=== PATIENT | female | born 1970 | race Caucasian/White ===

== ENCOUNTER 2018-11-08 20:16 | Observation (INO) | payer BC ==
[2018-11-08 22:34] LABS: Urine Blood NEGATIVE (NEG); Urine Glucose TRACE (NEG); Urine Protein NEGATIVE (NEG); Urine Specific Gravity 1.025 (1.005-1.030); Urine pH 5.5 (5.0-7.0)
[2018-11-08 22:54] LABS: Absolute Lymphocytes (CBC) 5.8 K/uL (0.7-4.9); Absolute Monocytes 1.4 K/uL (0.1-1.3); Absolute Neutrophil 10.4 K/uL (1.8-8.0); Basophils % 0.4 % (0-1.3); Eosinophils % 1.4 % (0-4.4); Hematocrit 37.5 % (36.0-45.0); Lymphocytes % 32.3 % (15.3-44.8); MPV 8.4 fL (7.6-11.3); Monocytes % 7.8 % (3.3-12.3); RBC Red Blood Cell Count 4.33 M/uL (3.86-4.86)
[2018-11-08 23:19] LABS: Potassium 3.7 mmol/L (3.5-5.1)
[2018-11-08 23:36] LABS: Urine Bacteria <20 /HPF (<20); Urine Culture Reflex Order NOT NEEDED; Urine RBC NONE SEEN /HPF (NONE SEEN)
[2018-11-08] MEDS ORDERED: NA CHLORIDE 0.9% 1,000 ML ONE (23:58)
[2018-11-08] MEDS ORDERED: KETOROLAC 30 MG/ML INJ ONE (23:58)
--- NOTE | 2018-11-09 00:48 | ER ---
Nurse's Notes [facility] Name: Gemma Liao Age: 48 yrs Sex: Female : 1970 Arrival Date: 11/08/2018 Time: 20:24 Bed 26 Private MD: Diagnosis: Acute appendicitis Presentation: 11/08 20:30 Presenting complaint: Patient states: "for 2 days now my abdominal muscles have been jd3 spamming and today they they just feel knotted and hurt. it hurts to stand or do anything.". Transition of care: patient was not received from another setting of care. Onset of symptoms was November 06, 2018. Risk Assessment: Do you want to hurt yourself or someone else? Patient reports no desire to harm self or others. Initial Sepsis Screen: Does the patient meet any 2 criteria? No. Patient's initial sepsis screen is negative. Does the patient have a suspected source of infection? No. Patient's initial sepsis screen is negative. Care prior to arrival: None. 20:30 Method Of Arrival: Ambulatory jd3 20:30 Acuity: NATHEN 3 jd3 PHYS ASSISTANT: 22:36 LMP N/A - Hysterectomy mg2 Historical: - Allergies: 20:35 No Known Allergies; jd3 - Home Meds: 20:35 embral [Active]; Cymbalta oral oral [Active]; jd3 - PMHx: 20:35 Arthritis; jd3 - PSHx: 20:35 right leg and ankle; Hysterectomy; jd3 - Immunization history:: Adult Immunizations up to date. - Social history:: Smoking status: Patient uses tobacco products, smokes one-half pack cigarettes per day. - Ebola Screening: : Patient negative for fever greater than or equal to 101.5 degrees Fahrenheit, and additional compatible Ebola Virus Disease symptoms. Screenin:36 Abuse screen: Denies threats or abuse. Denies injuries from another. Nutritional mg2 screening: No deficits noted. Tuberculosis screening: No symptoms or risk factors identified. Never had TB. Fall Risk IV access (20 points). Assessment: 22:34 General: Appears in no apparent distress. uncomfortable, Behavior is calm, cooperative. mg2 Pain: Complains of pain in left lower quadrant and right lower quadrant Pain does not radiate. Pain currently is 7 out of 10 on a pain scale. Quality of pain is described as aching, Pain began gradually, Is intermittent. Neuro: Level of Consciousness is awake, alert, obeys commands, Oriented to person, place, time, situation. Cardiovascular: Capillary refill < 3 seconds Patient's skin is warm and dry. Respiratory: Airway is patent Respiratory effort is even, unlabored, Respiratory pattern is regular, symmetrical. GI: Bowel sounds present X 4 quads. Abd is soft and non tender X 4 quads. Reports lower abdominal pain. : No signs and/or symptoms were reported regarding the genitourinary system. EENT: No signs and/or symptoms were reported regarding the EENT system. Derm: Skin is intact, is healthy with good turgor, Skin is pink, warm \\T\\ dry. normal. Musculoskeletal: Circulation, motion, and sensation intact. Capillary refill < 3 seconds. Vital Signs: 20:35 BP 126 / 80; Pulse 82; Resp 17 S; Temp 98.3(TE); Pulse Ox 97% on R/A; Weight 58.97 kg jd3 (R); Height 4 ft. 11 in. (149.86 cm) (R); Pain 8/10; 11/09 00:16 BP 119 / 81; Pulse 73; Resp 18; Pulse Ox 99% on R/A; mg2 01:10 BP 152 / 84; Pulse 87; Resp 18; Pulse Ox 100% on R/A; tl3 02 20:35 Body Mass Index 26.26 (58.97 kg, 149.86 cm) jd3 ED Course: 11/08 20:24 Patient arrived in ED. am2 20:31 Triage completed. jd3 20:35 Arm band placed on. jd3 20:47 Lizz Escobedo FNP-C is PHCP. kb 20:48 Godfrey Hartley MD is Attending Physician. kb 22:10 Urine collected: clean catch specimen, clear, arely colored. jp3 22:27 Delfin Ware, NALDO is Primary Nurse. mg2 22:36 Patient has correct armband on for positive identification. Pulse ox on. NIBP on. Door mg2 closed. Warm blanket given. 22:36 No provider procedures requiring assistance completed. Inserted saline lock: 20 gauge mg2 in right antecubital area, using aseptic technique. Blood collected. 11/09 00:13 CT completed. Patient tolerated procedure well. Patient moved to CT via wheelchair. Patient moved back from CT. 00:22 CT Abd/Pelvis - W/Contrast In Process Unspecified. EDMS 00:47 Jose Sanders MD is Hospitalizing Provider. kb 01:13 Patient admitted, IV remains in place. mg2 Administered Medications: 11/08 23:51 Drug: NS 0.9% 1000 ml Route: IV; Rate: 1000 ml; Site: right antecubital; mg2 11/09 00:05 Follow up: IV Status: Completed infusion; IV Intake: 1000ml tl3 11/08 23:51 Drug: TORadol 30 mg Route: IVP; Site: right antecubital; mg2 11/09 01:09 Follow up: Response: No adverse reaction tl3 01:05 Drug: morphine 4 mg Route: IVP; Site: right antecubital; mg2 01:38 Follow up: Response: No adverse reaction; Marked relief of symptoms mg2 01:05 Drug: Zofran 4 mg Route: IVP; Site: right antecubital; mg2 01:38 Follow up: Response: No adverse reaction; Marked relief of symptoms mg2 01:38 Drug: InvANZ 1 grams Route: IVPB; Infused Over: 30 mins; Site: right antecubital; mg2 01:38 Follow up: Response: No adverse reaction; IV Status: Infusion continued upon admission mg2 Intake: 00:05 IV: 1000ml; Total: 1000ml. tl3 Outcome: 00:47 Decision to Hospitalize by Provider. kb 01:43 Admitted to Med/surg accompanied by tech, via wheelchair, room 225, with chart, Report mg2 called to NALDO Wong 01:43 Condition: stable 01:43 Instructed on the need for admit, Demonstrated understanding of instructions. 01:50 Patient left the ED. mg2 Signatures: Dispatcher [employer] EDMS Lizz Escobedo, PUBLIC SPEAKING INSTRUCTOR-C PUBLIC SPEAKING INSTRUCTOR-Paco Martinez Danisha Haq am2 Abundio Ngo RN RN jCait Escobar RN RN tl3 Delfin Ware RN RN mg2 Baldev Bates jp3
--- NOTE | 2018-11-09 00:48 | EDPHYS ---
Physician Documentation [facility] Name: Gemma Liao Age: 48 yrs Sex: Female : 1970 Arrival Date: 11/08/2018 Time: 20:24 Bed 26 Private MD: ED Physician Godfrey Hartley HPI: 11/08 22:22 This 48 yrs old Female presents to ER via Ambulatory with complaints of kb muscle spasms, Abdominal Pain. 22:22 The patient presents with abdominal pain in the lower abdomen. Onset: The kb symptoms/episode began/occurred yesterday. The symptoms do not radiate. Associated signs and symptoms: Pertinent positives: nausea and vomiting. The symptoms are described as constant. Modifying factors: The symptoms are alleviated by nothing, the symptoms are aggravated by movement, pressure. Severity of pain: At its worst the pain was moderate in the emergency department the pain is unchanged. The patient has not experienced similar symptoms in the past. The patient has not recently seen a physician. TUBE MAN: 22:36 LMP N/A - Hysterectomy mg2 Historical: - Allergies: 20:35 No Known Allergies; jd3 - Home Meds: 20:35 embral [Active]; Cymbalta oral oral [Active]; jd3 - PMHx: 20:35 Arthritis; jd3 - PSHx: 20:35 right leg and ankle; Hysterectomy; jd3 - Immunization history:: Adult Immunizations up to date. - Social history:: Smoking status: Patient uses tobacco products, smokes one-half pack cigarettes per day. - Ebola Screening: : Patient negative for fever greater than or equal to 101.5 degrees Fahrenheit, and additional compatible Ebola Virus Disease symptoms. ROS: 22:21 Constitutional: Negative for fever, chills, and weight loss, ENT: Negative for injury, kb pain, and discharge, Neck: Negative for injury, pain, and swelling, Cardiovascular: Negative for chest pain, palpitations, and edema, Respiratory: Negative for shortness of breath, cough, wheezing, and pleuritic chest pain, MS/Extremity: Negative for injury and deformity, Skin: Negative for injury, rash, and discoloration, Neuro: Negative for headache, weakness, numbness, tingling, and seizure. 22:21 Abdomen/GI: Positive for abdominal pain, nausea and vomiting, Negative for diarrhea, constipation, abdominal cramps, abdominal distension, anorexia. 22:21 Back: Positive for flank pain. Exam: 22:21 Constitutional: This is a well developed, well nourished patient who is awake, alert, kb and in no acute distress. Head/Face: Normocephalic, atraumatic. ENT: Nares patent. No nasal discharge, no septal abnormalities noted. Tympanic membranes are normal and external auditory canals are clear. Oropharynx with no redness, swelling, or masses, exudates, or evidence of obstruction, uvula midline. Mucous membranes moist. Neck: Trachea midline, no thyromegaly or masses palpated, and no cervical lymphadenopathy. Supple, full range of motion without nuchal rigidity, or vertebral point tenderness. No Meningismus. Chest/axilla: Normal chest wall appearance and motion. Nontender with no deformity. No lesions are appreciated. Cardiovascular: Regular rate and rhythm with a normal S1 and S2. No gallops, murmurs, or rubs. Normal PMI, no JVD. No pulse deficits. Respiratory: Lungs have equal breath sounds bilaterally, clear to auscultation and percussion. No rales, rhonchi or wheezes noted. No increased work of breathing, no retractions or nasal flaring. Skin: Warm, dry with normal turgor. Normal color with no rashes, no lesions, and no evidence of cellulitis. MS/ Extremity: Pulses equal, no cyanosis. Neurovascular intact. Full, normal range of motion. Neuro: Awake and alert, GCS 15, oriented to person, place, time, and situation. Cranial nerves II-XII grossly intact. Motor strength 5/5 in all extremities. Sensory grossly intact. Cerebellar exam normal. Normal gait. 22:21 Abdomen/GI: Inspection: abdomen appears normal, Bowel sounds: normal, in all quadrants, Palpation: soft, in all quadrants, moderate abdominal tenderness, in the right lower quadrant and left lower quadrant. Vital Signs: 20:35 BP 126 / 80; Pulse 82; Resp 17 S; Temp 98.3(TE); Pulse Ox 97% on R/A; Weight 58.97 kg jd3 (R); Height 4 ft. 11 in. (149.86 cm) (R); Pain 8/10; 0208 00:16 BP 119 / 81; Pulse 73; Resp 18; Pulse Ox 99% on R/A; mg2 01:10 BP 152 / 84; Pulse 87; Resp 18; Pulse Ox 100% on R/A; tl3 11/08 20:35 Body Mass Index 26.26 (58.97 kg, 149.86 cm) jd3 MDM: 11/08 22:00 Patient medically screened. kb 22:22 Data reviewed: vital signs, nurses notes. Data interpreted: Pulse oximetry: on room air kb is 97 %. Interpretation: normal. 11/09 00:46 Counseling: I had a detailed discussion with the patient and/or guardian regarding: the kb historical points, exam findings, and any diagnostic results supporting the discharge/admit diagnosis, lab results, radiology results, the need for further work-up and treatment in the hospital. Physician consultation: Jose Sanders MD was contacted at 00:47, regarding admission, to the medical/surgical unit. patient's condition, and will see patient in inpatient room, would like medications started, invanz. 11/08 21:13 Order name: Urine Microscopic Only; Complete Time: 23:40 snw 11/08 22:20 Order name: Basic Metabolic Panel; Complete Time: 23:21 kb 11/08 22:20 Order name: CBC with Diff; Complete Time: 22:57 kb 11/08 22:26 Order name: Urine Dipstick--Ancillary (enter results); Complete Time: 22:40 mw2 11/08 22:26 Order name: Urine --Ancillary (enter results); Complete Time: 22:40 mw2 11/08 23:41 Order name: CT Abd/Pelvis - W/Contrast kb 11/08 21:13 Order name: Urine Dipstick-Ancillary (obtain specimen); Complete Time: 22:37 snw 11/08 22:20 Order name: IV Saline Lock; Complete Time: 22:37 kb 11/08 22:20 Order name: Labs collected and sent; Complete Time: 22:37 kb Administered Medications: 11/08 23:51 Drug: NS 0.9% 1000 ml Route: IV; Rate: 1000 ml; Site: right antecubital; mg2 11/09 00:05 Follow up: IV Status: Completed infusion; IV Intake: 1000ml tl3 11/08 23:51 Drug: TORadol 30 mg Route: IVP; Site: right antecubital; mg2 11/09 01:09 Follow up: Response: No adverse reaction tl3 01:05 Drug: morphine 4 mg Route: IVP; Site: right antecubital; mg2 01:38 Follow up: Response: No adverse reaction; Marked relief of symptoms mg2 01:05 Drug: Zofran 4 mg Route: IVP; Site: right antecubital; mg2 01:38 Follow up: Response: No adverse reaction; Marked relief of symptoms mg2 01:38 Drug: InvANZ 1 grams Route: IVPB; Infused Over: 30 mins; Site: right antecubital; mg2 01:38 Follow up: Response: No adverse reaction; IV Status: Infusion continued upon admission mg2 Disposition: 12:30 Co-signature as Attending Physician, Godfrey Hartley MD I agree with the assessment and mounika plan of care. Disposition: 11/09/18 00:47 Hospitalization ordered by Jose Sanders for Observation. Preliminary diagnosis is Acute appendicitis. - Bed requested for Telemetry/MedSurg (observation). - Status is Observation. mg2 - Condition is Stable. - Problem is new. - Symptoms are unchanged. UTI on Admission? No Signatures: Dispatcher [employer] EDLizz Mon, RADIOACTIVITY TECHNICIAN-C RADIOACTIVITY TECHNICIAN-Tiffanie Valle RN RN Godfrey Fish MD MD cha Therrien, Shelly RADIOACTIVITY TECHNICIAN-C RADIOACTIVITY TECHNICIAN-Abundio Thao RN RN jd3 Delfin Ware RN RN mg2 Cait Ford RN tl3 Corrections: (The following items were deleted from the chart) 00:54 00:47 Hospitalization Ordered by Jose Sanders MD for Observation. Preliminary diagnosis kl is Acute appendicitis. Bed requested for Telemetry/MedSurg (observation). Status is Observation. Condition is Stable. Problem is new. Symptoms are unchanged. UTI on Admission? No. kb 01:19 00:54 11/09/2018 00:47 Hospitalization Ordered by Jose Sanders MD for Observation. kl Preliminary diagnosis is Acute appendicitis. Bed requested for Telemetry/MedSurg (observation). Status is Observation. Condition is Stable. Problem is new. Symptoms are unchanged. UTI on Admission? No. kl 01:50 01:19 11/09/2018 00:47 Hospitalization Ordered by Jose Sanders MD for Observation. mg2 Preliminary diagnosis is Acute appendicitis. Bed requested for Telemetry/MedSurg (observation). Status is Observation. Condition is Stable. Problem is new. Symptoms are unchanged. UTI on Admission? No. kl
[2018-11-09] MEDS ORDERED: ONDANSETRON 4 MG/2 ML VIAL ONE (01:11)
[2018-11-09] MEDS ORDERED: MORPHINE 4 MG/ML SYR ONE (01:11)
[2018-11-09] MEDS ORDERED: ERTAPENEM SODIUM 1 GM VIAL ONE (01:43)
[2018-11-09] MEDS ORDERED: NA CHLORIDE 0.9% 100 ML ONE (01:43)
[2018-11-09] MEDS ORDERED: ONDANSETRON 4 MG/2 ML VIAL IV PRN (01:53)
[2018-11-09] MEDS ORDERED: ACETAMINOPHEN 500 MG TAB PO PRN (01:53)
[2018-11-09] MEDS ORDERED: MORPHINE 4 MG/ML SYR IV PRN (01:53)
[2018-11-09] MEDS: NA CHLORIDE 0.9% 1,000 ML IV SCH ×2 (02:23→09:53)
[2018-11-09] MEDS ORDERED: Ringers Lactate 1,000 ML IV ONE ×2 (08:52→10:20)
[2018-11-09] MEDS ORDERED: BUPIVACA 0.25%/EPI 0.0005% MDV 50 ML VIAL ONE (09:02)
[2018-11-09] MEDS ORDERED: DEXAMETHASONE 10 MG/ML VIAL ONE (09:15)
[2018-11-09] MEDS ORDERED: MIDAZOLAM HCL 2 MG/2 ML INJ ONE (09:15)
[2018-11-09] MEDS ORDERED: FENTANYL CITR 100 MCG/2 ML ONE (09:15)
[2018-11-09] MEDS ORDERED: LIDOCAINE 2% MPF 5 ML VIAL ONE (09:15)
[2018-11-09] MEDS ORDERED: PROPOFOL 200 MG/20 ML VIAL IV ONE (09:15)
[2018-11-09] MEDS ORDERED: ROCURONIUM 50 MG/5 ML VIAL IV ONE (09:16)
--- NOTE | 2018-11-09 09:54 | P.OP ---
Preoperative diagnosis: Acute Appendicitis Postoperative diagnosis: Acute Appendicitis Primary procedure: Laparoscopic Appendectomy Anesthesia: GETA + Local Estimated blood loss: <5cc Specimen: Appendix Findings: non-perforated appendicitis Complications: None Transferred to: Recovery Room Condition: Good
[2018-11-09] MEDS ORDERED: NEOSTIGMINE 1 MG/ML -10 ML VIAL ONE (10:06)
[2018-11-09] MEDS ORDERED: GLYCOPYRROLATE 0.2 MG/ML SYR ONE (10:06)
[2018-11-09] MEDS ORDERED: KETOROLAC 30 MG/ML INJ ONE (10:07)
[2018-11-09] MEDS ORDERED: ERTAPENEM SODIUM 1 GM VIAL IVPB SCH (21:00)
--- NOTE | 2018-11-09 21:14 | HP ---
Date of Admission: 11/09/2018 Brief History Of Present Illness: The patient is a 48-year-old female who presents with ap proximately 1-day history of periumbilical now right lower quadrant abdominal pain, described as azam p, stabbing, and worse over the course of the day. As such, she came to the emergency room. She has had no sick contacts. No recent travel. No similar episodes in the past. No exposures to any infe ctious process. No change in bowel or bladder habits. She has had subjective fever. No chills. No nausea or vomiting. Past Medical History: Significant for anxiety, depression, and endometriosis. She also has osteoart hritis. Past Surgical History: She has had a total abdominal hysterectomy, and she has had right ankle surge ry and left wrist surgery for fractures. Allergies: NO KNOWN DRUG ALLERGIES. Medications: Include; 1.Cymbalta. 2.Enbrel. Family History: Reviewed and noncontributory. Review of Systems: A 10-point review of systems other than HPI, denies. Physical Examination: Vital Signs: At the time of my examination, she is 4 feet 11 inches, 142 pounds, and BMI is 28.8. B lood pressure 159/81, pulse 72, respiratory rate 18, and temperature 97.9. General: She is awake, alert, and oriented. Psychiatric: She is appropriate and conversive. HEENT: She is normocephalic. Sclerae icteric. Mucous membranes are moist. Oropharynx is clear. Neck: Supple. No JVD. Chest: Normal expansion and excursion. Cardiovascular: Regular rate and rhythm. Pulmonary: Clear to auscultation bilaterally. Abdomen: Soft, with positive right lower quadrant tenderness to palpation. Positive focal peritonit is. Positive voluntary guarding, worse at McBurney point. Extremities: No clubbing, cyanosis, or edema. Skin: Warm and dry. Laboratory Examination: Reveals a white blood cell count of 17.9, hemoglobin is 12.3, hematocrit 37. 5, platelet count is 377, and neutrophils are 58%. Her sodium 141, potassium 3.7, chloride 108, carb on dioxide 28, BUN 11, creatinine 0.7, glucose is 122, and calcium 9.0. UA is essentially negative. Urine test is negative. She had a CT scan performed of the abdomen and pelvis, which show s inflammatory changes consistent with early appendicitis by the [facility] radiologist's conformation . Assessment And Plan: This is a 48-year-old female who presents with signs and symptoms of early appe ndicitis. 1.IV fluid hydration. 2.Antibiotic coverage, Levaquin and Flagyl. I have explained the risks, benefits, and alternatives of laparoscopic, possible open appendectomy in cluding, but not limited to bleeding, infection, damage to surrounding tissues and need for further o perating procedures. She agrees to proceed as indicated. FLOWER/ZACH Voice ID: [id number]
--- NOTE | 2018-11-09 22:20 | OP ---
Date of Procedure: 11/09/2018 Surgeon: Jose Sanders MD, Preoperative Diagnosis: Acute appendicitis. Postoperative Diagnosis: Acute appendicitis. Procedure Performed: Laparoscopic appendectomy. Anesthesia: General endotracheal plus local with 0.25% Marcaine. Estimated Blood Loss: Less than 5 cc. Specimen: Vermiform appendix. Findings: Nonperforated appendicitis. Complications: None. Disposition: Transferred to recovery room in good condition. Procedure In Detail: After informed consent was obtained, the patient was brought to the operating r oom, prepped and draped in the usual fashion. After adequate anesthesia was achieved, an infraumbili manjula area was anesthetized with 0.25% Marcaine, sharply incised, and a 5-mm trocar was introduced into the abdomen without evidence of complication. Insufflation was obtained to 15 mmHg at this time. N o injury to vital structures upon entering the abdomen. The area was inspected. Additional trocar s ite was chosen in the right lower quadrant/suprapubic region. This was similarly incised and sharply excised, and a 5-mm trocar was introduced into the abdomen without evidence of complication. The um bilical trocar was then up-sized to a 12 mm under direct visualization without evidence of complicati on. Additional trocar site was chosen in the left lower quadrant. This was similarly incised and sh arply excised. A 5-mm trocars was introduced into the abdomen without evidence of complication. The patient was then positioned in head down, right side up position. Grasper was used to find the appe ndix. It was found to be quite dilated and inflamed without evidence of perforation. There were inf lammatory changes, however, consistent with acute appendicitis. The appendix was grasped, elevated, and a mesoappendiceal window was created with the [place] retractor at the base of the appendix with good passage of the instrument. The Endo JOSE RAUL 35 blue load was fired across the base of the appendix at the confluence of the cecum with good approximation of tissues and no leakage at the staple line. The LigaSure device was then used to take the mesoappendix down using bipolar LigaSure device with good hemostasis. The appendix was then removed, placed in the EndoCatch, and removed through the umb ilical trocar. Reinsufflation was obtained at this time. There area was inspected for proper hemost asis, which was achieved at this time. The staple line was found to be in good anatomic position wit hout any evidence of leakage. The area was copiously irrigated multiple times until completely clear and then suctioned dry. The patient was then positioned in neutral position. The pelvis was then i rrigated copiously and suctioned until completely dry, and the umbilical trocar was then removed. Th e umbilical trocar site was closed using Aroldo-Ok suture passer with an 0 Vicryl in interrupte d fashion with good approximation of tissues. The abdomen was then completely desufflated under dire ct visualization without evidence of complication. All skin incisions were copiously irrigated and c losed with a 4-0 Monocryl in a running fashion. Dermabond was placed over the top. The patient tole rated the procedure without evidence of complication and was transferred back in good condition. All counts were correct at the end of the case. FLOWER/ZACH Voice ID: [id number] Report ID: [id number]
[2018-11-10] MEDS ORDERED: ERTAPENEM NA 1 GM in NA CHLORIDE 0.9% 100 ML IVPB SCH (01:00)
--- NOTE | 2018-11-10 11:37 | RAD REPORT ---
EXAM DESCRIPTION: CT - Abdomen Pelvis W Contrast - 11/09/2018 3:07 am CLINICAL HISTORY: Iv contrast only;Abd pain. TECHNIQUE: Axial scans through the abdomen and pelvis with intravenous contrast using 100 cc of Omni paque 300 including multiplanar computer reformations. Multi phase axial data sets. Total Dose Length Product: 1144. This exam was performed according to our departmental dose-optimization program, whic h includes automated exposure control, adjustment of the mA and/or kV according to patient size and/o r use of iterative reconstruction technique. COMPARISON: None. FINDINGS: Liver: Size: 17.3 cm Parenchyma: Fatty infiltration. Vasculature: Portal and hepatic veins: Normal Spleen: Normal Gallbladder: Normal Bile ducts: No biliary dilatation. Pancreas: Normal. Adrenal glands: Normal Kidneys: Normal. Noting few subcentimeter cysts. Bladder: Normal Uterus: Hysterectomy Adnexa: No adnexal mass. Intestinal Tract: Stomach and duodenum: Ingested contents Small bowel: Mild small bowel fluid without evidence for dilatation or obstruction. Large bowel: Moderate colonic stool burden. Scattered small diverticula. Appendix: There is a band of inflammation that fans out from the region of the base of the appendix i nto the adjacent mesenteric fat. Whole the appendix is otherwise miostly obscured and not well seen t he findings ar presumably related to acute appendicitis. Correlate clinically. No rim-enhancing fluid collection. Mesentery and Omentum: Inflammatory changes right lower quadrant as discussed. Retroperitoneum: Normal Vasculature: Aorta: Mild atheromatous calcification. Iliac arteries: Normal Free fluid: None. Musculoskeletal: Musculature, abdominal wall and soft tissues: Unremarkable. Lung bases: Clear. IMPRESSION: 1. Inflammatory changes right lower quadrant in the expected location of the appendix al though the appendix is largely obscured. Suspicious for acute appendicitis. I discussed the findings with REENA Escobedo at 12:30 AM. Electronically signed by: Ronal Dang MD 11/09/2018 12:39 AM [id number] DEVELOPER Due to temporary technical issues with the PACS/Fluency reporting system, reports are being signed by the in house radiologist as a courtesy to ensure prompt reporting. The interpreting radiologist is f ully responsible for the content of the report.
== END 2018-11-09 13:15 | disposition home or self-care (01) ==
LOC: ER 20:16 → ERHOLD 11-09 00:57 → 2ND 11-09 01:43
PROVIDERS: ADMIT Surgery; ATTEND Surgery
PROC: 0DTJ4ZZ Resection of Appendix, Percutaneous Endoscopic Approach (ICD-10-PCS; principal; 2018-11-09 08:45)
DX: K35.80 Unspecified acute appendicitis (principal); F41.8 Other specified anxiety disorders
CPT/HCPCS: 36415; 74177; 80048; 81003; 81015; 81025; 85025; 88304; 96374; 96375; 99285; G0378; J1100; J1335; J2250; J2405; J2704; J2710; J3010; J7030; Q9967